=== PATIENT | male | born 1955 | race Asian ===

== ENCOUNTER 2018-05-26 06:05 | Day surgery (SDC) | payer OTHER ==
[2018-05-26] MEDS ORDERED: PROPOFOL 60 ML (08:20)
[2018-05-26] MEDS ORDERED: LIDOCAINE 100 MG SYRINGE (08:20)
[2018-05-26] MEDS ORDERED: FENTAnyl 50 MCG/ML VIAL (08:20)
== END 2018-05-26 11:32 | disposition home or self-care (01) ==
LOC: GIL 06:05
DX: Z12.11 Encounter for screening for malignant neoplasm of colon (principal); K29.50 Unspecified chronic gastritis without bleeding; K20.9 Esophagitis, unspecified; K29.80 Duodenitis without bleeding; K64.4 Residual hemorrhoidal skin tags; E78.5 Hyperlipidemia, unspecified; I10 Essential (primary) hypertension; Z87.891 Personal history of nicotine dependence
CPT/HCPCS: 43239; 82962; 88305; 88312